=== PATIENT | male | born 1955 | race Caucasian/White ===

== ENCOUNTER 2017-01-07 22:51 | Inpatient (IN) | payer BC ==
[~2017-01-07] VITALS: Ht 188 cm; Wt 84.2 kg
--- NOTE | ~2017-01-07 | FD ---
ADMIT: 01/08/2017 RM/LOC: 419 [facility] MR#: [id number] [address] [id number] INGE [place] [address] [place] [id number] Final Diagnosis SEX: M AGE: 61 : 1955 ADMISSION DATE: 01/08/2017 DISCHARGE DATE: 01/08/2017 FINAL DIAGNOSIS: Suspected retinal detachment of left eye. HOSPITAL COURSE: The patient presented to the emergency room in the evening on January 08 complaining of partial vision loss in his left eye. He reported a fogginess in that quadrant of his vision that progressed to a complete blackness without any flashes or floaters. He was admitted to the hospital and kept over night to have an MRI completed in the morning to rule out cerebrovascular accident. Ophthalmology was consulted during business hours and asked for him to be discharged to their office for full evaluation due to possible retinal detachment. The patient had no other neuro deficits and was stable during his hospital stay. FOLLOWUP: At the patient's primary care physician, Dr. Pyle, as indicated per Ophthalmology. Mavis Mirza MD Resident / Ki Sharma MD / carleel JOB #: [id number] CC: Ki Sharma MD, Attending Physician Arnaldo Pyle ([facility]), Family Physician
--- NOTE | 2017-01-08 19:14 | ER ---
ADMIT: 01/08/2017 RM/LOC: 419 [facility] MR#: [id number] [id number] [place], [place] [address] INGE [facility] [address] [place] [id number] Emergency Room Report SEX: M AGE: 61 : 1955 DATE: 01/07/2017 HISTORY OF PRESENT ILLNESS: The patient is a 61-year-old male, came to the ER with chief complaint of haziness and change of vision in the left eye. The patient stated this started at 2 o'clock. The patient denies similar episodes in the past and has no positive past medical history. PHYSICAL EXAMINATION: GENERAL: In the ER, the patient was alert, oriented to person, place, and time. In no obvious pain or distress. The patient is sitting in bed. VITAL SIGNS: Vitals are normal. HEENT: In the eye examination, pupils are 3 mm, reactive to light bilaterally. Extraocular movements are normal. Eye pressure on the right and left were both 6 mmHg. Eye examination was normal other than left eye inferomedial hemianopia. Airway was open. CHEST: Clear bilaterally. HEART: Normal heart sounds. ABDOMEN: Soft. NEURO: Motor and sensory and cerebellar tests are grossly normal. The patient has normal gait. IMAGING STUDIES: CT of the brain was negative for any acute bleeding or hemorrhage. ASSESSMENT AND PLAN: The patient was admitted by Internal Medicine for further followups and treatments, and MRI in the morning. Dr. Nam was already contacted and he is already on board and advised on the MRI in the morning to rule out stroke. Jakob Kwong MD/ riky JOB #: [id number] CC: Ki Sharma MD, Attending Physician Arnaldo Pyle ([facility]), Family Physician
--- NOTE | 2017-02-21 15:33 | HP ---
ADMIT: 01/08/2017 RM/LOC: 419 [facility] MR#: [id number] [facility]#: [id number] [address] [facility] [address] [place], [place] [address] INGE [place] [address] [place] [address] History and Physical SEX: M AGE: 61 : 1955 DATE OF SERVICE: CHIEF COMPLAINT: Loss of vision. HISTORY OF PRESENT ILLNESS: The patient reports that he was helping a friend build hay this afternoon when he noticed that there was a haziness to the vision of his left eye. Throughout the afternoon, the vision changes progressed until he felt like there was a curtain like loss of his vision extending from his inferior field to the middle of his vision. He reports since presentation, the changes have only progressed and never regressed. At that time, he suspected a foreign body. Because he was out in the field though he never had a sensation of a foreign body. He denies ever seeing any floaters or flashes of light, though describes kind of a bright edge to the loss of vision. He denies any ocular pain. He denies any systemic changes in sensation or strength. His reports that he is of normal mentation. He has no previous history of cerebrovascular accidents or any similar symptoms. He is a never smoker. He reports that his sister had a cerebral vascular accident when she developed the DVT after an orthopedic surgery. PAST MEDICAL HISTORY: None. PAST SURGICAL HISTORY: Tonsils and adenoids. MEDICATIONS: None. The patient took an aspirin prior to arrival due to his fear for cerebrovascular accident. ALLERGIES: NO KNOWN MEDICAL ALLERGIES. 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 He is . is at the bedside. He reports he never uses tobacco and denies regular alcohol use. REVIEW OF SYSTEMS: Ten-point review of systems completed and negative except as noted in the HPI. PHYSICAL EXAMINATION: VITAL SIGNS: 117/70, 61, 16, 99%, and 96.9. GENERAL: Awake alert, oriented, in no acute distress. The patient appears comfortable. HEENT: Head is normocephalic and atraumatic. Pupils are equal, round, and reactive to light. Extraocular muscles are intact. Mucous membranes are moist. Trachea is midline. Thyroid nonpalpable. No appreciable JVD. HEART: Regular rate and rhythm without murmur, rub, or gallop. LUNGS: Clear to auscultation bilaterally. ABDOMEN: Soft, nontender to palpation. Bowel sounds are present. EXTREMITIES: Without cyanosis, clubbing, or edema. NEUROLOGIC: The patient is alert and oriented, not agitated, EFRA Stroke Scale with a score of 1 due to partial vision loss in his lower medial quadrant of his left eye. Corrected vision is 20/30 in his left eye and 20/40 in his right eye and combined 20/50. CT head without contrast completed with no ADMIT: 01/08/2017 RM/LOC: 419 [facility] MR#: [id number] [address] [place] [id number] [facility] [place] [address] [place] [address] History and Physical SEX: M AGE: 61 : 1955 appreciable pathology. ASSESSMENT: Quadrantanopsia, left eye. PLAN: We will admit the patient to complete an MRI to evaluate for cerebrovascular accident as cause of the vision loss. Aspirin was taken prior to arrival. We will draw lipid panel and A1c to screen for modifiable metabolic risk factors of stroke. If MRI does return with cerebrovascular accident, we will complete echocardiogram and carotid Dopplers at that time. Blood pressure is currently well controlled, and the patient denies history of hypertension. Neurology has been notified of the patient. We will ask nursing to do neuro checks and vital signs every hour for the next 8 hours then every 2 for 8 hours then every 4 until discharged unless MRI is unremarkable. Mavis Mirza MD Resident / Ki Sharma MD / riky JOB #: [id number] CC: Ki Sharma, Attending Physician Arnaldo Pyle ([facility]), Family Physician
== END 2017-01-08 11:40 | disposition home or self-care (01) | DRG 125 ==
LOC: ER 22:51 → 4PCU 01-08 02:00
PROVIDERS: ADMIT Family Medicine
DX: H33.22 Serous retinal detachment, left eye (principal)